=== PATIENT | female | born 1960 | race Caucasian/White ===

== ENCOUNTER → 2019-03-02 | Emergency (ER) | payer BC, OTHER ==
[~2019-03-02] VITALS: Ht 157.5 cm; Wt 60.0 kg
[~2019-03-02] MED LIST: ALBUTEROL/IPRATROPIUM (NEB) 3 ML AMP HHN STA; CYCL10TA7 PO; DIAZ5TAB4 PO; DICL50TA11 PO; HYDR-3498 PO
[2019-03-02 19:53] VITALS: Ht 157.5 cm; Wt 60.0 kg
--- NOTE | 2019-03-02 22:20 | ERD ---
ER Documentation Chief Complaint Chief Complaint Cough x 2 days hx odf bronchitis HPI 58-year-old female with no past medical surgical history who presents with 2-day complaint of cough. Cough productive of thin yellow sputum. States she is a former smoker who quit 2-1/2 years ago but denies any diagnosis of COPD. Had similar symptoms approximately 3 months ago and was seen by PMD and treated for presumed bronchitis. Prescribed Ventolin and Dulera at that time. She otherwise denies chest pain, nausea, vomiting, diarrhea, abdominal pain. Does report burning and itching with urination over the same period of time. ROS All systems reviewed and are negative except as per history of present illness. Medications Home Meds Active Scripts Diazepam* (Diazepam*) 5 Mg Tablet, 5 MG PO DAILY, #5 TAB Prov:[facility] 02/09/16 Diclofenac Sodium* (Diclofenac Sodium*) 50 Mg Tablet.dr, 50 MG PO TID, #14 TAB [facility] 02/09/16 Hydrocodone Bit-Acetaminophen* ([place]*) 5-325 Mg Tab, 1 TAB PO Q6 PRN for PAIN, #7 TAB Prov:[facility]ENNIF[facility] 02/09/16 Cyclobenzaprine Hcl* (Cyclobenzaprine Hcl*) 10 Mg Tablet, 10 MG PO TID, #15 TAB [facility] 02/09/16 Allergies Allergies: Coded Allergies: No Known Drug Allergies (Verified Allergy, Unknown, 02/09/16) PMhx/Soc History of Surgery: Yes (hysterectomy) Hx Respiratory Disorders: Yes (bronchitis) Hx Alcohol Use: No Hx Substance Use: No Hx Tobacco Use: No Smoking Status: Never smoker Physical Exam Vitals Vital Signs Date Temp Pulse Resp B/P (MAP) Pulse Ox O2 O2 Flow FiO2 Time Delivery Rate 03/02/19 97.8 72 16 122/67 100 19:53 (85) Physical Exam I have reviewed the triage vital signs. Const: Well nourished, well developed, appears stated age Eyes: PERRL, no conjunctival injection HENT: NCAT, Neck supple without meningismus CV: RRR, Warm, well-perfused extremities RESP: CTAB, Unlabored respiratory effort GI: soft, non-tender, non-distended, no masses MSK: No gross deformities appreciated Skin: Warm, dry. No rashes Neuro: grossly non focal Psych: Appropriate mood and affect. Results 24 hrs Laboratory Tests Test 03/02/19 21:55 Urine Color YELLOW Urine Clarity CLEAR Urine pH 7.0 Urine Specific [place] 1.018 Urine Ketones NEGATIVE mg/dL Urine Nitrite NEGATIVE mg/dL Urine Bilirubin NEGATIVE mg/dL Urine Urobilinogen NEGATIVE mg/dL Urine Leukocyte Esterase NEGATIVE [place]/ul Urine Hemoglobin NEGATIVE mg/dL Urine Glucose NEGATIVE mg/dL Urine Total Protein NEGATIVE mg/dl Procedures/MDM 58-year-old female who presents with cough likely secondary to simple bronchitis. Doubt underlying bacterial respiratory infection. She does not exhibit any signs of systemic infection. I have no concern for causes of cough warranting additional emergent workup. No imaging warranted at this time. No antibiotics warranted. Plan: Antitussives, PMD follow up UA negative DISPOSITION PLAN: We discussed follow up with the patient's primary care doctor within 24 to 48 hours. Patient counseled regarding my diagnostic impression and care plan. Prior to discharge all questions answered. Pt agrees with treatment plan and understands strict return precautions. Precautionary instructions provided including instructions to return to the ER if not improving or for any worsening or changing symptoms or concerns. Departure Condition: Stable Patient Instructions: Acute Bronchitis KEN RAHMAN PA-C Mar 02, 2019 22:20
[2019-03-02 23:05] VITALS: BP 120/70; PULSE 92; RESP 16
== END | disposition home or self-care (01) ==
LOC: FTE 19:47
DX: R05 Cough (principal); Z87.891 Personal history of nicotine dependence
CPT/HCPCS: 81003; 94664